=== PATIENT | male | born 1965 | race African-American/Black ===

== ENCOUNTER → 2021-08-07 | Outpatient (CLI) | payer BC, OTHER ==
[~2021-08-07] MED LIST: ACTOS; ACTOS 30 MG TAB30 M1 PO; ALLOPURINOL 10100 M1 PO; ARIMIDEX PO; ASPIRIN81 M2 PO; CENTRUM SILVER1 EAC2 PO; DEPO-TESTO100 MG/1 M IM; GLIPIZIDE ER5 MG PO; IRON325 PO; LISINOPRIL-HCT1 EAC1 PO; METFORMIN; METFORMIN HCL500 MG PO; NIFEDICAL XL30 MG; NIFEDIPINE ER30 M1 PO; NORCO 5-325 TA1 EAC1 PO; PERCOCET 5-3251 EACH PO; SIMVASTATIN40 MG PO; SUPER B COMPLE1 EAC2 PO; TOPROL XL50 MG PO; VITAMIN E400 UNIT PO; VYTORIN 10-401 EACH; ZOFRAN ODT4 MG DISSOLVE
== END ==
LOC: SJCVCIMAG 14:48
PROVIDERS: ATTEND Internal Medicine
DX: I49.9 Cardiac arrhythmia, unspecified (principal); E11.9 Type 2 diabetes mellitus without complications; I10 Essential (primary) hypertension